=== PATIENT | male | born 1940 | race Caucasian/White ===

== ENCOUNTER 2017-04-17 17:40 | Emergency (ER) | payer MEDICARE, OTHER ==
[2017-04-17] MEDS ORDERED: Ondansetron 4 MG Tab.DIS PO ONE (17:41)
[2017-04-17] MEDS ORDERED: Sodium Chloride 0.9% 10 ML Syringe FLUSH PRN (17:50)
[2017-04-17] MEDS ORDERED: Ondansetron 4 MG/2 ML SDV IV ONE (17:50)
--- NOTE | 2017-04-17 17:55 | EDM.PDOC ---
<Dagoberto Gonzalez Sandro - Last Filed: 04/17/17 18:42> ED HPI GENERAL MEDICAL PROBLEM - General Chief Complaint: Abdominal Pain Stated Complaint: stomach pain [phone] Time Seen by Provider: 04/17/17 17:45 Source of Information: Reports: Patient History Limitations: Reports: No Limitations - History of Present Illness INITIAL COMMENTS - FREE TEXT/NARRATIVE: This 76 yo male patient reports to the ED with abdominal pain and nausea. The patient reports his symptoms started at about 1500 this afternoon. The patient reports he has not thrown up yet, but feels nauseated. The patient also reports increased abdominal bloating. The patient reports he ate some cheese, crackers and ham that were just prior to the onset of his symptoms. Onset: Today, Sudden Onset Date: 04/17/17 Onset Time: 15:00 Duration: Constant Location: Reports: Abdomen Quality: Reports: Ache, Dull Severity: Moderate Improves with: Reports: None Worsens with: Reports: None Associated Symptoms: Reports: Nausea/Vomiting Abdominal Pain Score (Numeric/FACES): 5 - Related Data Allergies Allergy/AdvReac Type Severity Reaction Status Date / Time atorvastatin calcium Allergy Liver Verified 04/17/17 17:54 [From Lipitor] Problems nifedipine [From Adalat] Allergy Headache Verified 04/17/17 17:54 Home Meds: Home Meds Aspirin [Halfprin] 81 mg PO DAILY 06/15/13 [History] Atenolol 75 mg PO DAILY 06/15/13 [History] Furosemide [Lasix] 10 mg PO DAILY 06/15/13 [History] Gabapentin [Neurontin] 300 mg PO TID 06/15/13 [History] Glimepiride [Amaryl] 4 mg PO BRK 06/15/13 [History] Lisinopril [Zestril] 35 mg PO DAILY 06/15/13 [History] Omeprazole 20 mg PO DAILY 06/15/13 [History] Simvastatin [Zocor] 20 mg PO BEDTIME 06/15/13 [History] amLODIPine/atorvaSTATin [Amlodipine-Atorvast 10-10 MG] 10 mg PO DAILY 06/15/13 [ History] metFORMIN [Glucophage] 1,000 mg PO BID 06/15/13 [History] Acetaminophen [Tylenol Extra Strength] 500 mg PO BID PRN 04/14/16 [History] Past Medical History HEENT History: Reports: Cataract, Retinal Detachment, Other (See Below) 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 Cardiovascular History: Reports: High Cholesterol, Hypertension, SOB on Exertion Respiratory History: Reports: Pneumonia, Recurrent, Sleep Apnea Gastrointestinal History: Reports: Hemorrhoids Genitourinary History: Other Genitourinary History: PROSTATE ENLARGEMENT Musculoskeletal History: Reports: Arthritis Psychiatric History: Reports: None Endocrine/Metabolic History: Reports: Diabetes, Type II, Obesity/BMI 30+ Hematologic History: Reports: None Immunologic History: Reports: None Oncologic (Cancer) History: Reports: None - Infectious Disease History Infectious Disease History: Reports: Chicken Pox, Measles, Mumps, Shingles, Other (See Below) Other Infectious Disease History: polio - Past Surgical History HEENT Surgical History: Reports: Cataract Surgery, Eye Surgery, Tonsillectomy GI Surgical History: Reports: Colonoscopy, Hernia, Inguinal Neurological Surgical History: Reports: Spinal Fusion Musculoskeletal Surgical History: Reports: Shoulder Surgery, Other (See Below) Social & Family History - Family History Family Medical History: Noncontributory - Tobacco Use Smoking Status *Q: Former Smoker Years of Tobacco use: 30 Second Hand Smoke Exposure: No - Caffeine Use Caffeine Use: Reports: Coffee, Soda - Alcohol Use Days Per Week of Alcohol Use: 1 - Recreational Drug Use Recreational Drug Use: No ED ROS GENERAL - Review of Systems Review Of Systems: ROS reveals no pertinent complaints other than HPI. ED EXAM, GI/ABD - Physical Exam Exam: See Below Exam Limited By: No Limitations General Appearance: Alert, WD/WN, Moderate Distress Eyes: Bilateral: Normal Appearance, EOMI Ears: Normal External Exam, Normal Canal, Hearing Grossly Normal, Normal TMs Nose: Normal Inspection, Normal Mucosa, No Blood Throat/Mouth: Normal Inspection, Normal Lips, Normal Teeth, Normal Gums, Normal Oropharynx, Normal Voice, No Airway Compromise Head: Atraumatic, Normocephalic Neck: Normal Inspection, Supple, Non-Tender, Full Range of Motion Respiratory/Chest: No Respiratory Distress, Lungs Clear, Normal Breath Sounds, No Accessory Muscle Use, Chest Non-Tender Cardiovascular: Normal Peripheral Pulses, Regular Rate, Rhythm, No Edema, No Gallop, No JVD, No Murmur, No Rub GI/Abdominal Exam: Normal Bowel Sounds, Soft, Distended, Tender (upper abdomen) (Male) Exam: Deferred Rectal (Males) Exam: Deferred Back Exam: Normal Inspection, Full Range of Motion, NT Extremities: Normal Inspection, Normal Range of Motion, Non-Tender, Normal Capillary Refill, No Pedal Edema Neurological: Alert, Oriented, CN II-XII Intact, Normal Cognition, Normal Gait, Normal Reflexes, No Motor/Sensory Deficits Psychiatric: Normal Affect, Normal Mood Skin Exam: Warm, Dry, Intact, Normal Color, No Rash Lymphatic: No Adenopathy Course - Vital Signs Last Recorded V/S: Last Vital Signs Temp 101.0 F H 04/17/17 20:16 Pulse 66 04/17/17 19:16 Resp 20 04/17/17 19:16 BP 129/59 L 04/17/17 19:16 Pulse Ox 95 04/17/17 19:16 - Orders/Labs/Meds Orders: Active Orders 24 hr Category Date Time Status Sodium Chloride 0.9% [Saline Flush] Med 04/17/17 17:50 Active 10 ml FLUSH ASDIRECTED PRN Saline Lock Insert [OM.PC] Routine Oth 04/17/17 17:50 Ordered Medication Orders Sodium Chloride (Saline Flush) 10 ml FLUSH ASDIRECTED PRN PRN Reason: Keep Vein Open Last Admin: 04/17/17 18:04 Dose: 10 ml Labs: Laboratory Tests 04/17/17 04/17/17 04/17/17 Range/Units 18:02 18:02 18:02 WBC 11.6 H (5.0-10.0) 10^3/uL RBC 5.41 (4.6-6.2) 10^6/uL Hgb 14.1 (14.0-18.0) g/dL Hct 42.3 (40.0-54.0) % MCV 78.2 L (80-100) fL MCH 26.1 L (27.0-34.0) pg MCHC 33.3 (33.0-35.0) g/dL Plt Count 243 (150-450) 10^3/uL Neut % (Auto) 83.5 H (42.2-75.2) % Lymph % (Auto) 8.3 L (20.5-50.1) % [place] % (Auto) 6.5 (2-8) % Eos % (Auto) 1.4 (1.0-3.0) % Baso % (Auto) 0.3 (0.0-1.0) % Sodium 137 (135-145) mmol/L Potassium 3.8 (3.6-5.0) mmol/L Chloride 102 (101-111) mmol/L Carbon Dioxide 24.0 (21.0-31.0) mmol/L Anion Gap 14.8 BUN 19 H (7-18) mg/dL Creatinine 0.9 (0.6-1.3) mg/dL Est Cr Clr Drug Dosing 65.38 mL/min Estimated GFR (MDRD) > 60 BUN/Creatinine Ratio 21.11 Glucose 166 H (74-105) mg/dL Calcium 9.2 (8.4-10.2) mg/dl Total Bilirubin 0.5 (0.2-1.0) mg/dL AST 27 (10-42) IU/L ALT 23 (10-60) IU/L Alkaline Phosphatase 60 (42-121) IU/L Total Protein 7.4 (6.7-8.2) g/dl Albumin 4.5 (3.2-5.5) g/dl Globulin 2.9 Albumin/Globulin Ratio 1.55 Amylase 59 (28-100) U/L Lipase 28 (22-51) U/L Urine Color (YELLOW) Urine Appearance (CLEAR) Urine pH (5.0-9.0) Ur Specific [place] (1.005-1.030) Urine Protein (NEGATIVE) Urine Glucose (UA) (NEGATIVE) Urine Ketones (NEGATIVE) Urine Occult Blood (NEGATIVE) Urine Nitrite (NEGATIVE) Urine Bilirubin (NEGATIVE) Urine Urobilinogen (0.2-1.0) mg/dL Ur Leukocyte Esterase (NEGATIVE) Urine RBC /HPF Urine WBC (0-5/HPF) /HPF Ur Epithelial Cells /HPF Urine Mucus /LPF // Range/Units 20:19 WBC (5.0-10.0) 10^3/uL RBC (4.6-6.2) 10^6/uL Hgb (14.0-18.0) g/dL Hct (40.0-54.0) % MCV (80-100) fL MCH (27.0-34.0) pg MCHC (33.0-35.0) g/dL Plt Count (150-450) 10^3/uL Neut % (Auto) (42.2-75.2) % Lymph % (Auto) (20.5-50.1) % [place] % (Auto) (2-8) % Eos % (Auto) (1.0-3.0) % Baso % (Auto) (0.0-1.0) % Sodium (135-145) mmol/L Potassium (3.6-5.0) mmol/L Chloride (101-111) mmol/L Carbon Dioxide (21.0-31.0) mmol/L Anion Gap BUN (7-18) mg/dL Creatinine (0.6-1.3) mg/dL Est Cr Clr Drug Dosing mL/min Estimated GFR (MDRD) BUN/Creatinine Ratio Glucose (74-105) mg/dL Calcium (8.4-10.2) mg/dl Total Bilirubin (0.2-1.0) mg/dL AST (10-42) IU/L ALT (10-60) IU/L Alkaline Phosphatase (42-121) IU/L Total Protein (6.7-8.2) g/dl Albumin (3.2-5.5) g/dl Globulin Albumin/Globulin Ratio Amylase (28-100) U/L Lipase (22-51) U/L Urine Color Dark yellow (YELLOW) Urine Appearance Slightly cloudy (CLEAR) Urine pH 5.5 (5.0-9.0) Ur Specific [place] 1.010 (1.005-1.030) Urine Protein Negative (NEGATIVE) Urine Glucose (UA) Negative (NEGATIVE) Urine Ketones 15 H (NEGATIVE) Urine Occult Blood Negative (NEGATIVE) Urine Nitrite Negative (NEGATIVE) Urine Bilirubin Negative (NEGATIVE) Urine Urobilinogen 0.2 (0.2-1.0) mg/dL Ur Leukocyte Esterase Negative (NEGATIVE) Urine RBC Not seen /HPF Urine WBC Not seen (0-5/HPF) /HPF Ur Epithelial Cells Rare /HPF Urine Mucus Few H /LPF Meds: Medications Generic Name Dose Route Start Last Admin Trade Name Freq PRN Reason Stop Dose Admin Sodium Chloride 10 ml 04/17/17 17:50 04/17/17 18:04 Saline Flush FLUSH 10 ml ASDIRECTED PRN Administration Keep Vein Open Discontinued Medications Generic Name Dose Route Start Last Admin Trade Name Freq PRN Reason Stop Dose Admin Acetaminophen 650 mg 04/17/17 20:22 04/17/17 20:27 Tylenol PO 04/17/17 20:23 650 mg NOW ONE Administration Iopamidol 100 ml 04/17/17 18:39 04/17/17 19:24 Isovue-300 (61%) IVPUSH 04/17/17 18:40 100 ml ONETIME ONE Administration Ondansetron HCl 4 mg 04/17/17 17:50 04/17/17 18:03 Zofran IV 04/17/17 17:51 4 mg ONETIME ONE Administration Departure - Departure Disposition: Home, Self-Care 01 Clinical Impression: Gastroenteritis - Discharge Information Instructions: Viral Gastroenteritis, Adult, [id number] Referrals: Nav Vicente MD [Primary Care Provider] - Forms: ED Department Discharge Additional Instructions: Inrease fluid intake soft bland diet zofran 4mg ODT every4 hours as needed for nausea tylenol 650mg every 4 hours as needed for fever/discomfort follow up if symptoms worsen <Mirian Harrell - Last Filed: 04/17/17 21:00> Departure - Departure Time of Disposition: 20:20 Condition: Fair
[2017-04-17 18:26] LABS: CHLORIDE,CL 102 mmol/L (101-111); SODIUM,NA 137 mmol/L (135-145)
[2017-04-17] MEDS ORDERED: Iopamidol 612 MG/ML 100 ML Bottle IVPUSH ONE (18:39)
[2017-04-17 19:17] VITALS: BP 129/59
[2017-04-17] MEDS ORDERED: Acetaminophen 325 MG Tab PO ONE (20:22)
[2017-04-17] MEDS ORDERED: Ondansetron 4 MG Tab.DIS ONE (21:07)
== END 2017-04-17 21:14 | disposition home or self-care (01) ==
LOC: DL.ED 17:40
DX: K52.9 Noninfective gastroenteritis and colitis, unspecified (principal); E11.9 Type 2 diabetes mellitus without complications; E78.00 Pure hypercholesterolemia, unspecified; I10 Essential (primary) hypertension; Z88.8 Allergy status to other drugs, medicaments and biological substances; Z79.82 Long term (current) use of aspirin; Z79.84 Long term (current) use of oral hypoglycemic drugs; Z79.899 Other long term (current) drug therapy; Z87.891 Personal history of nicotine dependence
CPT/HCPCS: 36415; 74177; 80053; 81001; 82150; 83690; 85025; 96374; 99284; A9270; J2405; J7050; Q9967

== ENCOUNTER 2019-02-16 22:14 | Emergency (ER) | payer MEDICARE, OTHER ==
[2019-02-16 22:28] VITALS: BP 156/80; PULSE 64
--- NOTE | 2019-02-16 22:33 | EDM.PDOC ---
ED HPI GENERAL MEDICAL PROBLEM - General Chief Complaint: Upper Extremity Injury/Pain Stated Complaint: PT FELL INJURED L SHOULDER Time Seen by Provider: 02/16/19 22:31 Source of Information: Reports: Patient History Limitations: Reports: No Limitations - History of Present Illness INITIAL COMMENTS - FREE TEXT/NARRATIVE: fell onto left shoulder this AM, pain got worse tonight Right Upper Anterior Shoulder Pain Score (Numeric/FACES): 8 - Related Data Allergies Allergy/AdvReac Type Severity Reaction Status Date / Time atorvastatin calcium Allergy Liver Verified 02/16/19 22:21 [From Lipitor] Problems nifedipine [From Adalat] Allergy Headache Verified 02/16/19 22:21 Home Meds: Home Meds Aspirin [Halfprin] 81 mg PO DAILY 06/15/13 [History] Atenolol 75 mg PO DAILY 06/15/13 [History] Furosemide [Lasix] 10 mg PO DAILY 06/15/13 [History] Gabapentin [Neurontin] 300 mg PO TID 06/15/13 [History] Glimepiride [Amaryl] 4 mg PO BRK 06/15/13 [History] Lisinopril [Zestril] 35 mg PO DAILY 06/15/13 [History] Omeprazole 20 mg PO DAILY 06/15/13 [History] Simvastatin [Zocor] 20 mg PO BEDTIME 06/15/13 [History] amLODIPine/atorvaSTATin [Amlodipine-Atorvast 10-10 MG] 10 mg PO DAILY 06/15/13 [ History] metFORMIN [Glucophage] 1,000 mg PO BID 06/15/13 [History] Acetaminophen [Tylenol Extra Strength] 500 mg PO BID PRN 04/14/16 [History] Past Medical History HEENT History: Reports: Cataract, Retinal Detachment, Other (See Below) 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 Gastrointestinal History: Reports: Hemorrhoids Genitourinary History: Other Genitourinary History: PROSTATE ENLARGEMENT Musculoskeletal History: Reports: Arthritis Psychiatric History: Reports: None Endocrine/Metabolic History: Reports: Diabetes, Type II, Obesity/BMI 30+ Hematologic History: Reports: None Immunologic History: Reports: None Oncologic (Cancer) History: Reports: None - Infectious Disease History Infectious Disease History: Reports: Chicken Pox, Measles, Mumps, Shingles, Other (See Below) Other Infectious Disease History: polio - Past Surgical History HEENT Surgical History: Reports: Cataract Surgery, Eye Surgery, Tonsillectomy GI Surgical History: Reports: Colonoscopy, Hernia, Inguinal Neurological Surgical History: Reports: Spinal Fusion Musculoskeletal Surgical History: Reports: Shoulder Surgery, Other (See Below) Dermatological Surgical History: Reports: None Social & Family History - Family History Family Medical History: Noncontributory - Caffeine Use Caffeine Use: Reports: Coffee, Soda Review of Systems - Review of Systems Review Of Systems: ROS reveals no pertinent complaints other than HPI. ED EXAM, GENERAL - Physical Exam Exam: See Below Exam Limited By: No Limitations General Appearance: Alert, WD/WN, Mild Distress, Other (discomfort) Ears: Hearing Grossly Normal Throat/Mouth: Normal Voice, No Airway Compromise Head: Atraumatic Neck: Non-Tender, Full Range of Motion Respiratory/Chest: No Respiratory Distress Cardiovascular: Regular Rate, Rhythm GI/Abdominal: Soft, Non-Tender Extremities: Limited Range of Motion (left shoulder unale fully abduct, tender R /P, NV wnl.), Other Neurological: Alert, Oriented, Normal Cognition, Normal Gait, No Motor/Sensory Deficits Psychiatric: Normal Affect, Normal Mood Skin Exam: Warm, Dry, Normal Color Lymphatic: No Adenopathy Course - Vital Signs Last Recorded V/S: Last Vital Signs Temp 36.2 C 02/16/19 22:27 Pulse 64 02/16/19 22:27 Resp 18 02/16/19 22:27 BP 156/80 H 02/16/19 22:27 Pulse Ox 98 02/16/19 22:27 - Re-Assessments/Exams Free Text/Narrative Re-Assessment/Exam: 02/16/19 23:22 results discussed with pt. Departure - Departure Time of Disposition: 23:23 Disposition: Home, Self-Care 01 Condition: Good Clinical Impression: Shoulder contusion Qualifiers: Encounter type: initial encounter Laterality: left Qualified Code(s): S40.012A - Contusion of left shoulder, initial encounter - Discharge Information Instructions: Contusion, [id number] Forms: ED Department Discharge Additional Instructions: 1) wear sling for comfort next 48 hours 2) see clinic for MRI SCAN if no improvement by then 3) try heat to sore area 4) try tylenol for pain
== END 2019-02-16 23:30 | disposition home or self-care (01) ==
LOC: DL.ED 22:14
DX: S40.012A Contusion of left shoulder, initial encounter (principal); I10 Essential (primary) hypertension; E11.9 Type 2 diabetes mellitus without complications; E66.9 Obesity, unspecified; E78.00 Pure hypercholesterolemia, unspecified; Z68.31 Body mass index [BMI] 31.0-31.9, adult; Z79.82 Long term (current) use of aspirin; Z79.84 Long term (current) use of oral hypoglycemic drugs; Z79.899 Other long term (current) drug therapy; Z88.8 Allergy status to other drugs, medicaments and biological substances; W19.XXXA Unspecified fall, initial encounter
CPT/HCPCS: 73030-LT; 99283-25

== ENCOUNTER 2020-12-28 15:00 | Emergency (ER) | payer OTHER, MEDICARE ==
[2020-12-28 15:16] VITALS: BP 150/80; PULSE 79
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
== END 2020-12-28 15:35 | disposition home or self-care (01) ==
LOC: DL.ED 15:00
DX: R25.1 Tremor, unspecified (principal); E78.00 Pure hypercholesterolemia, unspecified; I10 Essential (primary) hypertension; M19.90 Unspecified osteoarthritis, unspecified site; E11.9 Type 2 diabetes mellitus without complications; E66.9 Obesity, unspecified; Z68.32 Body mass index [BMI] 32.0-32.9, adult; Z98.42 Cataract extraction status, left eye; Z88.8 Allergy status to other drugs, medicaments and biological substances; Z79.82 Long term (current) use of aspirin; Z79.4 Long term (current) use of insulin; Z79.899 Other long term (current) drug therapy; V09.00XA Pedestrian injured in nontraffic accident involving unspecified motor vehicles, initial encounter; Y92.481 Parking lot as the place of occurrence of the external cause
CPT/HCPCS: 99283

== ENCOUNTER 2021-03-23 16:43 | Emergency (ER) | payer MEDICARE, OTHER ==
[2021-03-23] MEDS ORDERED: Acetaminophen/HYDROcodone 325-5 MG Tab PO ONE (16:44)
[2021-03-23 17:22] VITALS: BP 125/80; PULSE 67
[2021-03-23] MEDS ORDERED: Acetaminophen/HYDROcodone 325-5 MG Tab ONE (17:54)
--- NOTE | 2021-03-23 17:57 | EDM.PDOC ---
ED HPI GENERAL MEDICAL PROBLEM - General Chief Complaint: Upper Extremity Injury/Pain Stated Complaint: LEFT SHOULDER PAIN. Time Seen by Provider: 03/23/21 17:40 Source of Information: Reports: Patient History Limitations: Reports: No Limitations - History of Present Illness INITIAL COMMENTS - FREE TEXT/NARRATIVE: This 80 yo male patient reports to the ED with increased pain in his left shoulder. The patient reports he injured his shoulder again today when the wind caught his door and he was attempting to close it. The patient reports he has had a previous rotator cuff injury, but has not decided if he wants to have his shoulder worked on yet. The patient reports he did take ibuprofen about 2 hours ago and feels a little better at this time. 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 - Related Data Allergies Allergy/AdvReac Type Severity Reaction Status Date / Time atorvastatin calcium Allergy Liver Verified 03/23/21 17:22 [From Lipitor] Problems nifedipine [From Adalat] Allergy Headache Verified 03/23/21 17:22 calcium containing compounds AdvReac unknown Uncoded 03/23/21 17:22 Home Meds: Home Meds Furosemide [Lasix] 10 mg PO DAILY 06/15/13 [History] Gabapentin [Neurontin] 300 mg PO TID 06/15/13 [History] Lisinopril [Zestril] 20 mg PO BID 06/15/13 [History] Omeprazole 20 mg PO DAILY 06/15/13 [History] Simvastatin [Zocor] 20 mg PO BEDTIME 06/15/13 [History] amLODIPine/atorvaSTATin [Amlodipine-Atorvast 10-10 MG] 10 mg PO DAILY 06/15/13 [History] atenoloL [Atenolol] 50 mg PO DAILY 06/15/13 [History] metFORMIN [Glucophage] 1,000 mg PO BID 06/15/13 [History] Acetaminophen [Tylenol Extra Strength] 500 mg PO DAILY PRN 04/14/16 [History] Aspirin [Aspirin EC] 81 mg PO DAILY 07/06/20 [History] Cyanocobalamin (Vitamin B12) [Vitamin B12] 1,000 mg PO DAILY 07/06/20 [History] Glimepiride [Amaryl] 8 mg PO DAILY 07/06/20 [History] Insulin Glargine,Hum.Rec.Anlog [Lantus Solostar] 15 units SQ BEDTIME 07/06/20 [History] Magnesium Oxide 400 mg PO DAILY 07/06/20 [History] Sertraline [Zoloft] 50 mg PO DAILY 07/06/20 [History] Past Medical History HEENT History: Reports: Cataract, Retinal Detachment, Other (See Below) 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 Gastrointestinal History: Reports: Hemorrhoids Genitourinary History: Other Genitourinary History: PROSTATE ENLARGEMENT Musculoskeletal History: Reports: Arthritis Psychiatric History: Reports: None Endocrine/Metabolic History: Reports: Diabetes, Type II, Obesity/BMI 30+ Hematologic History: Reports: None Immunologic History: Reports: None Oncologic (Cancer) History: Reports: None - Infectious Disease History Infectious Disease History: Reports: Chicken Pox, Measles, Mumps, Shingles, Other (See Below) Other Infectious Disease History: polio - Past Surgical History HEENT Surgical History: Reports: Cataract Surgery, Eye Surgery, Tonsillectomy Other HEENT Surgeries/Procedures: surg for detached retina; "BLOOD TUMOR" REMOVED TO LEFT EYE Cardiovascular Surgical History: Reports: None Respiratory Surgical History: Reports: None GI Surgical History: Reports: Colonoscopy, Hernia, Inguinal Male Surgical History: Reports: None Endocrine Surgical History: Reports: None Neurological Surgical History: Reports: Spinal Fusion Musculoskeletal Surgical History: Reports: Shoulder Surgery, Other (See Below) Other Musculoskeletal Surgeries/Procedures:: lumbar spine surg Dermatological Surgical History: Reports: None Social & Family History - Family History Family Medical History: No Pertinent Family History - Tobacco Use Tobacco Use Status *Q: Unknown Ever Used Tobacco - Caffeine Use Caffeine Use: Reports: Coffee - Recreational Drug Use Recreational Drug Use: No Review of Systems - Review of Systems Review Of Systems: Comprehensive ROS is negative, except as noted in HPI. ED EXAM, GENERAL - Physical Exam Exam: See Below Exam Limited By: No Limitations General Appearance: Alert, WD/WN, Mild Distress Eye Exam: Bilateral Eye: EOMI, Normal Inspection Ears: Normal External Exam, Hearing Grossly Normal Nose: Normal Inspection, Normal Mucosa, No Blood Throat/Mouth: Normal Inspection, Normal Voice, No Airway Compromise Head: Atraumatic, Normocephalic Neck: Normal Inspection, Full Range of Motion Respiratory/Chest: No Respiratory Distress, Normal Breath Sounds Cardiovascular: Normal Peripheral Pulses, Regular Rate, Rhythm (Male) Exam: Deferred Rectal (Males) Exam: Deferred Extremities: Limited Range of Motion (left shoulder) Neurological: Alert, Oriented, CN II-XII Intact, Normal Cognition, Normal Gait, Normal Reflexes Psychiatric: Normal Affect, Normal Mood Skin Exam: Warm, Dry, Intact, Normal Color, No Rash Lymphatic: No Adenopathy Course - Vital Signs Last Recorded V/S: Last Vital Signs Temp 99.2 F 03/23/21 17:18 Pulse 67 03/23/21 17:18 Resp 16 03/23/21 17:18 BP 125/80 03/23/21 17:18 Pulse Ox 96 03/23/21 17:18 Departure - Departure Time of Disposition: 17:54 Disposition: Home, Self-Care 01 Condition: Fair Clinical Impression: Left shoulder strain Qualifiers: Encounter type: initial encounter Qualified Code(s): S46.912A - Strain of unspecified muscle, fascia and tendon at shoulder and upper arm level, left arm, initial encounter - Discharge Information *PRESCRIPTION DRUG MONITORING PROGRAM REVIEWED*: Not Applicable *COPY OF PRESCRIPTION DRUG MONITORING REPORT IN PATIENT [place]: Not Applicable Instructions: Muscle Strain, [id number] Care Plan Goals: The patient was advised of the examination results during the visit. The patient was discharged with a dose of Leroy (5/325) to take at bedtime. The patient was also given a script for Leroy (5/325) #8 to take 1 by mouth at bedtime as needed for pain. If the patient has any additional symptoms or concerns, the patient should either return to the emergency department or visit his primary care facility. Sepsis Event Note (ED) - Evaluation Sepsis Screening Result: No Definite Risk - Focused Exam Vital Signs: Vital Signs Temp Pulse Resp BP Pulse Ox 03/23/21 17:18 99.2 F 67 16 125/80 96
== END 2021-03-23 18:05 | disposition home or self-care (01) ==
LOC: DL.ED 16:43
DX: S46.912A Strain of unspecified muscle, fascia and tendon at shoulder and upper arm level, left arm, initial encounter (principal); E78.00 Pure hypercholesterolemia, unspecified; I10 Essential (primary) hypertension; E11.9 Type 2 diabetes mellitus without complications; E03.9 Hypothyroidism, unspecified; E66.9 Obesity, unspecified; Z68.31 Body mass index [BMI] 31.0-31.9, adult; Z79.4 Long term (current) use of insulin; Z79.899 Other long term (current) drug therapy; Z79.82 Long term (current) use of aspirin; W23.0XXA Caught, crushed, jammed, or pinched between moving objects, initial encounter
CPT/HCPCS: 99283; A9270-GY

== ENCOUNTER 2024-05-07 16:48 | Emergency (ER) | payer MEDICARE, OTHER ==
[2024-05-07 17:39] LABS: APPEARANCE,URINE CLEAR (CLEAR); BILIRUBIN,URINE NEGATIVE (NEGATIVE); COLOR,URINE YELLOW (YELLOW); GLUCOSE,URINE 100 (NEGATIVE); KETONES,URINE NEGATIVE (NEGATIVE); LEUKOCYTE ESTERASE,URINE NEGATIVE (NEGATIVE); NITRITE,URINE NEGATIVE (NEGATIVE); OCCULT BLOOD,URINE NEGATIVE (NEGATIVE); PROTEIN,URINE NEGATIVE (NEGATIVE); UROBILINOGEN,URINE 0.2 mg/dL (0.2-1.0)
[2024-05-07 19:43] VITALS: BP 135/70; PULSE 60
== END 2024-05-07 19:40 | disposition home or self-care (01) ==
LOC: DL.ED 16:48
DX: R51.9 Headache, unspecified (principal); Z88.8 Allergy status to other drugs, medicaments and biological substances; Z79.4 Long term (current) use of insulin; Z79.82 Long term (current) use of aspirin; Z79.84 Long term (current) use of oral hypoglycemic drugs; Z79.899 Other long term (current) drug therapy; W01.198A Fall on same level from slipping, tripping and stumbling with subsequent striking against other object, initial encounter
CPT/HCPCS: 70450; 72125; 81003; 99283; 99284

== ENCOUNTER 2024-05-13 09:52 | Emergency (ER) | payer MEDICARE, OTHER ==
[2024-05-13] MEDS ORDERED: Sodium Chloride 0.9% 10 ML Syringe FLUSH PRN (09:55)
[2024-05-13 10:12] LABS: BASOPHILS PERCENT AUTO 0.7 % (0.0-1.0); EOSINOPHILS PERCENT AUTO 5.1 % (1.0-3.0); HEMATOCRIT 37.8 % (40.0-54.0); HEMOGLOBIN 12.2 g/dL (14.0-18.0); LYMPHOCYTES PERCENT AUTO 26.5 % (20.5-50.1); MEAN CORPUSCULAR HEMOGLOBIN 26.4 pg (27.0-34.0); MEAN CORPUSCULAR HGB CONC 32.3 g/dL (33.0-35.0); MEAN CORPUSCULAR VOLUME 81.8 fL (80-100); MONOCYTES PERCENT AUTO 9.8 % (2-8); NEUTROPHILS PERCENT AUTO 57.9 % (42.2-75.2); PLATELET COUNT,PLT 215 10^3/uL (150-450); RED BLOOD CELL COUNT 4.62 10^6/uL (4.6-6.2); WHITE BLOOD CELL COUNT,WBC 5.8 10^3/uL (5.0-10.0)
[2024-05-13 10:35] LABS: ALBUMIN 3.6 g/dL (3.4-5.0); ANION GAP 11.5 mEq/L (7-13); BILIRUBIN TOTAL 0.4 mg/dL (0.2-1.0); BUN/CREATININE RATIO 23.6 (No establ ref range); CALCIUM 8.6 mg/dL (8.5-10.1); CREATININE 0.72 mg/dL (0.70-1.30); EST CRCL DRUG DOSING (CG) 83.83 mL/min; MAGNESIUM 1.9 mg/dL (1.8-2.4); POTASSIUM,K 3.5 mmol/L (3.5-5.1); PROTEIN TOTAL,TP 7.1 g/dL (6.4-8.2)
[2024-05-13 10:44] LABS: PROTHROMBIN TIME 10.2 SEC (9.0-12.0); PTT,PARTIAL THROMBOPLSTIN TIME 26.9 SEC (22.0-34.0)
[2024-05-13 13:28] VITALS: BP 151/106; PULSE 61
== END 2024-05-13 13:45 | disposition home or self-care (01) ==
LOC: DL.ED 09:52
DX: R20.2 Paresthesia of skin (principal); M79.602 Pain in left arm; I10 Essential (primary) hypertension; E78.00 Pure hypercholesterolemia, unspecified; K21.9 Gastro-esophageal reflux disease without esophagitis; E11.9 Type 2 diabetes mellitus without complications; E66.9 Obesity, unspecified; I25.10 Atherosclerotic heart disease of native coronary artery without angina pectoris; Z79.899 Other long term (current) drug therapy; Z79.84 Long term (current) use of oral hypoglycemic drugs; Z79.4 Long term (current) use of insulin; Z88.8 Allergy status to other drugs, medicaments and biological substances; Z68.23 Body mass index [BMI] 23.0-23.9, adult
CPT/HCPCS: 36415; 70450; 71045; 80053; 83735; 83880; 84484; 85025; 85610; 85730; 99284; 99285

== ENCOUNTER 2025-01-27 19:34 | Emergency (ER) | payer MEDICARE, OTHER ==
[2025-01-27 20:23] LABS: BASOPHILS PERCENT AUTO 0.4 % (0.0-1.0); EOSINOPHILS PERCENT AUTO 2.9 % (1.0-3.0); LYMPHOCYTES PERCENT AUTO 22.4 % (20.5-50.1); MONOCYTES PERCENT AUTO 10.5 % (2-8); NEUTROPHILS PERCENT AUTO 63.8 % (42.2-75.2); PLATELET COUNT,PLT 234 10^3/uL (150-450); RED BLOOD CELL COUNT 3.99 10^6/uL (4.6-6.2); WHITE BLOOD CELL COUNT,WBC 5.5 10^3/uL (5.0-10.0)
[2025-01-27 20:58] LABS: A/G RATIO 0.89; ALANINE AMINOTRANSFERASE,ALT 15 U/L (16-63); ASPARTATE AMNIOTRANSFERASE,AST 17 U/L (15-37); BILIRUBIN TOTAL 0.2 mg/dL (0.2-1.0); BLOOD UREA NITROGEN,BUN 21 mg/dL (7-18); CARBON DIOXIDE,CO2 26 mmol/L (21-32); CHLORIDE,CL 104 mmol/L (98-107); CREATININE 0.94 mg/dL (0.70-1.30); ESTIMATED GFR 79 mL/min (>=60); GLUCOSE RANDOM 204 mg/dL (70-99); POTASSIUM,K 4.0 mmol/L (3.5-5.1); PROTEIN TOTAL,TP 6.8 g/dL (6.4-8.2); SODIUM,NA 140 mmol/L (136-145); TSH ULTRASENSITIVE 0.84 uIU/mL (0.36-3.74)
[2025-01-27 23:09] VITALS: BP 135/73; PULSE 60
== END 2025-01-27 21:36 ==
LOC: DL.ED 19:34
DX: I95.1 Orthostatic hypotension (principal); E11.9 Type 2 diabetes mellitus without complications; K21.9 Gastro-esophageal reflux disease without esophagitis; E78.00 Pure hypercholesterolemia, unspecified; I10 Essential (primary) hypertension; Z88.8 Allergy status to other drugs, medicaments and biological substances; Z79.4 Long term (current) use of insulin; Z79.899 Other long term (current) drug therapy; Z79.84 Long term (current) use of oral hypoglycemic drugs; Z79.82 Long term (current) use of aspirin
CPT/HCPCS: 36415; 80053; 82947; 83735; 83880; 84443; 84484; 85025; 93005; 93010; 99284

== ENCOUNTER 2025-03-02 17:06 | Emergency (ER) | payer MEDICARE, OTHER ==
[2025-03-02 17:37] LABS: BASOPHILS PERCENT AUTO 0.5 % (0.0-1.0); EOSINOPHILS PERCENT AUTO 4.1 % (1.0-3.0); LYMPHOCYTES PERCENT AUTO 28.2 % (20.5-50.1); MONOCYTES PERCENT AUTO 10.4 % (2-8); NEUTROPHILS PERCENT AUTO 56.8 % (42.2-75.2); PLATELET COUNT,PLT 213 10^3/uL (150-450); RED BLOOD CELL COUNT 4.01 10^6/uL (4.6-6.2); WHITE BLOOD CELL COUNT,WBC 5.9 10^3/uL (5.0-10.0)
[2025-03-02 17:45] LABS: APPEARANCE,URINE CLEAR (CLEAR); GLUCOSE,URINE NEGATIVE (NEGATIVE); OCCULT BLOOD,URINE NEGATIVE (NEGATIVE)
[2025-03-02 17:56] LABS: ALANINE AMINOTRANSFERASE,ALT 16 U/L (16-63); ASPARTATE AMNIOTRANSFERASE,AST 13 U/L (15-37); BILIRUBIN TOTAL 0.3 mg/dL (0.2-1.0); BLOOD UREA NITROGEN,BUN 24 mg/dL (7-18); CARBON DIOXIDE,CO2 28 mmol/L (21-32); CHLORIDE,CL 105 mmol/L (98-107); CREATININE 0.90 mg/dL (0.70-1.30); GLUCOSE RANDOM 141 mg/dL (70-99); POTASSIUM,K 3.9 mmol/L (3.5-5.1); PROTEIN TOTAL,TP 6.3 g/dL (6.4-8.2); SODIUM,NA 143 mmol/L (136-145)
[2025-03-02 17:58] LABS: A/G RATIO 1.03; ESTIMATED GFR 84 mL/min (>=60)
[2025-03-02 18:07] VITALS: BP 163/84; PULSE 60
== END 2025-03-02 18:50 | disposition home or self-care (01) ==
LOC: DL.ED 17:06
DX: G20.A1 Parkinson's disease without dyskinesia, without mention of fluctuations (principal); E78.00 Pure hypercholesterolemia, unspecified; I10 Essential (primary) hypertension; K21.9 Gastro-esophageal reflux disease without esophagitis; E11.9 Type 2 diabetes mellitus without complications; Z88.8 Allergy status to other drugs, medicaments and biological substances; Z79.899 Other long term (current) drug therapy; Z79.84 Long term (current) use of oral hypoglycemic drugs; Z79.82 Long term (current) use of aspirin
CPT/HCPCS: 36415; 80053; 81003; 85025; 99283; 99284

== ENCOUNTER 2025-03-10 06:29 | Inpatient (IN) | payer MEDICARE, OTHER ==
[2025-03-10 07:34] LABS: BASOPHILS PERCENT AUTO 0.4 % (0.0-1.0); EOSINOPHILS PERCENT AUTO 1.8 % (1.0-3.0); LYMPHOCYTES PERCENT AUTO 25.8 % (20.5-50.1); MONOCYTES PERCENT AUTO 9.8 % (2-8); NEUTROPHILS PERCENT AUTO 62.2 % (42.2-75.2); PLATELET COUNT,PLT 221 10^3/uL (150-450); RED BLOOD CELL COUNT 4.36 10^6/uL (4.6-6.2); WHITE BLOOD CELL COUNT,WBC 5.5 10^3/uL (5.0-10.0)
[2025-03-10 07:51] LABS: A/G RATIO 1.1; ALANINE AMINOTRANSFERASE,ALT 19.0 U/L (16-63); ASPARTATE AMNIOTRANSFERASE,AST 19.0 U/L (15-37); BILIRUBIN TOTAL 0.4 mg/dL (0.2-1.0); BLOOD UREA NITROGEN,BUN 20.0 mg/dL (7-18); CARBON DIOXIDE,CO2 30.0 mmol/L (21-32); CHLORIDE,CL 102.0 mmol/L (98-107); CREATININE 0.77 mg/dL (0.70-1.30); EST CRCL DRUG DOSING (CG) 65.58 mL/min; ESTIMATED GFR 88.0 mL/min (>=60); GLUCOSE RANDOM 146.0 mg/dL (70-99); POTASSIUM,K 3.4 mmol/L (3.5-5.1); PROTEIN TOTAL,TP 6.6 g/dL (6.4-8.2); SODIUM,NA 139.0 mmol/L (136-145)
[2025-03-10 08:20] LABS: APPEARANCE,URINE CLEAR (CLEAR); GLUCOSE,URINE 100 (NEGATIVE); OCCULT BLOOD,URINE TRACE-INTACT (NEGATIVE)
[2025-03-10 08:32] LABS: EPITHELIAL CELLS,URINE FEW /HPF (NOT SEEN)
[2025-03-10] MEDS: Heparin Sodium 5,000 Units/ML Vial SUBCUT SCH (14:40)
[2025-03-10] MEDS: Insulin Glarg,Human.Rec.Analog 100 Unit/ML 10 ML Vial SUBCUT SCH (20:28)
[2025-03-11] MEDS: Cyanocobalamin (Vitamin B12) 1,000 MCG Tab PO SCH (10:29)
[2025-03-11] MEDS: Omeprazole 20 MG Cap.CR PO SCH (10:29)
[2025-03-11] MEDS: Fluticasone NASAL Spray 16 GM Bottle NASBOTH SCH (10:29)
[2025-03-11] MEDS: Potassium Chloride 10 MEQ Tab.ER PO SCH (17:23)
[2025-03-13 11:35] VITALS: BP 114/87; PULSE 60
== END 2025-03-13 15:55 | disposition swing bed (61) | DRG 565 ==
LOC: DL.ED 06:29 → DL.MS 10:00
PROVIDERS: ADMIT Internal Medicine; ATTEND Internal Medicine
DX: S22.030A Wedge compression fracture of third thoracic vertebra, initial encounter for closed fracture (principal); R53.1 Weakness; S22.9XXA Fracture of bony thorax, part unspecified, initial encounter for closed fracture; F03.93 Unspecified dementia, unspecified severity, with mood disturbance; R53.81 Other malaise; W19.XXXA Unspecified fall, initial encounter; G20.A1 Parkinson's disease without dyskinesia, without mention of fluctuations; E53.8 Deficiency of other specified B group vitamins; I10 Essential (primary) hypertension; G47.33 Obstructive sleep apnea (adult) (pediatric); Z68.25 Body mass index [BMI] 25.0-25.9, adult; K21.9 Gastro-esophageal reflux disease without esophagitis; N40.0 Benign prostatic hyperplasia without lower urinary tract symptoms; M19.90 Unspecified osteoarthritis, unspecified site; E11.9 Type 2 diabetes mellitus without complications; E66.9 Obesity, unspecified; M21.371 Foot drop, right foot; H26.9 Unspecified cataract; E78.00 Pure hypercholesterolemia, unspecified; Z98.890 Other specified postprocedural states; Z68.24 Body mass index [BMI] 24.0-24.9, adult; Z88.8 Allergy status to other drugs, medicaments and biological substances; Z79.82 Long term (current) use of aspirin; Z79.84 Long term (current) use of oral hypoglycemic drugs; Z79.4 Long term (current) use of insulin; Z79.899 Other long term (current) drug therapy; Z87.891 Personal history of nicotine dependence
CPT/HCPCS: 36415; 70450; 72125; 72128; 72131; 80053; 81001; 85025; 99284 ×2; A9270; 82947; 97161-GP; 97165-GO; 97530-GO; 97530-GP; 99223; 99232; 99233; 99239; J1644; J1815-GY; J7030

== ENCOUNTER 2025-03-13 08:44 | Inpatient (IN) | payer MEDICARE, OTHER ==
[2025-03-13] MEDS ORDERED: 50% Dextrose in Water 50 ML Syringe IVPUSH PRN (12:03)
[2025-03-13] MEDS: Heparin Sodium 5,000 Units/ML Vial SUBCUT SCH (16:26)
[2025-03-13] MEDS: Potassium Chloride 10 MEQ Tab.ER PO SCH (18:26)
[2025-03-13] MEDS: Insulin Glarg,Human.Rec.Analog 100 Unit/ML 10 ML Vial SUBCUT SCH (20:35)
[2025-03-14] MEDS: Cyanocobalamin (Vitamin B12) 1,000 MCG Tab PO SCH (08:26)
[2025-03-14] MEDS: Omeprazole 20 MG Cap.CR PO SCH (08:29)
[2025-03-14] MEDS: Fluticasone NASAL Spray 16 GM Bottle NASBOTH SCH (08:31)
[2025-03-16 13:47] VITALS: BP 112/68; PULSE 60
== END 2025-03-16 13:45 | DRG 948 ==
LOC: DL.MS 15:59
PROVIDERS: ADMIT Internal Medicine; ATTEND Internal Medicine
DX: R53.81 Other malaise (principal); S22.9XXA Fracture of bony thorax, part unspecified, initial encounter for closed fracture; F03.93 Unspecified dementia, unspecified severity, with mood disturbance; G20.A1 Parkinson's disease without dyskinesia, without mention of fluctuations; E53.8 Deficiency of other specified B group vitamins; H26.9 Unspecified cataract; I10 Essential (primary) hypertension; G47.33 Obstructive sleep apnea (adult) (pediatric); M19.90 Unspecified osteoarthritis, unspecified site; E78.00 Pure hypercholesterolemia, unspecified; K21.9 Gastro-esophageal reflux disease without esophagitis; N40.0 Benign prostatic hyperplasia without lower urinary tract symptoms; E11.9 Type 2 diabetes mellitus without complications; E66.9 Obesity, unspecified; Z68.24 Body mass index [BMI] 24.0-24.9, adult; Z88.8 Allergy status to other drugs, medicaments and biological substances; Z79.899 Other long term (current) drug therapy; Z79.84 Long term (current) use of oral hypoglycemic drugs; Z79.82 Long term (current) use of aspirin; Z79.4 Long term (current) use of insulin
CPT/HCPCS: 97161-GP; 97165-GO; 99306; 99316; A9270-GY; J1644